=== PATIENT | female | born 2000 | race Asian ===

== ENCOUNTER 2023-07-10 10:02 | Outpatient (AMB) | payer OTHER, SELFPAY ==
[2023-07-10 09:52] VITALS: BP 127/69; PULSE 135; RESP 14; TEMP 38.5; O2SAT 98; BMI 20.4
--- NOTE | 2023-07-10 09:52 | AM.OFFWIN_ITS ---
Intake Vital Signs 07/10/23 09:52 Height 5 ft 4 in Weight 119 lb BMI 20.4 BP 127/69 Blood Pressure Location Rt brachial Position Sitting Respiration 14 Pulse 135 H Pulse Source Pulse Oximeter Temp 101.3 F H Temp Source Temporal Artery Scan Pulse Oximetry (%) 98 Oxygen Delivery Method Simple Mask Intake Visit Reasons: Sore throat Intake Note: Patient has sore throat x2 days accompanied by headache, bodyaches and chills. Patient tested negative at home for covid. 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[employer]) HPI HPI Comments History of Present Illness Details Flu like sx started 2 nights ago, worse since onset fever, chills, headache, sore throat, bodyaches, cough No vomiting Nyquil without relief PFSH Social History Patient Tobacco Use Status: Never used Tobacco Review of Systems Const All systems reviewed & are unremarkable except as noted in HPI and below Physical Exam Vital Signs: Last Vital Signs Temp 101.3 F H 07/10/23 09:52 Pulse 135 H 07/10/23 09:52 Resp 14 07/10/23 09:52 BP 127/69 07/10/23 09:52 Pulse Ox 98 07/10/23 09:52 Oxygen Delivery Method Simple Mask 07/10/23 09:52 BMI result Body Mass Index 20.4 Const Other: Awake alert NAD Sclera and conjunctiva clear bilat EAC w/ cerumen bilat unable to see TM MMM, pharynx mildly erythematous no exudate RRR LS CTAB Assessment & Plan Assessment & Plan (1) Flu-like symptoms: Code(s): R68.89 - Other general symptoms and signs Plan: 1520 viral swab results positive for flu type a. Patient called with these results. Tamiflu sent to the pharmacy take as directed and follow current CDC guidelines (2) Impacted cerumen, bilateral: Code(s): H61.23 - Impacted cerumen, bilateral Plan: Earwax (Cerumen Impaction) Created in Ears Earwax, called cerumen, is produced by special wax-forming glands located in the skin of the outer one-third of the ear canal. It is normal to have cerumen in ear canal as this waxy substance serves as a self-cleaning agent with protective, lubricating, and antibacterial properties. The absence of earwax may result in dry, itchy ears. Self-cleaning means there is a slow and record keeper movement of earwax and skin cells from the eardrum to the ear opening. Old earwax is constantly being transported, assisted by chewing and jaw motion, from the ear canal to the ear opening where, most of the time, it dries, flakes, and falls out. What Are the Symptoms of an Earwax Blockage? Symptoms of an earwax problem may include: Earache Feeling of plugged hearing or fullness in the ear Partial hearing loss that gets worse Tinnitus, ringing, or noises in the ear Itching, odor, or discharge Coughing Pain Infection What Causes Earwax Blockage? When a patient has wax blockage against the eardrum, it is often because they have been probing the ear with such things as cotton-tipped swabs, brian pins, or twisted napkin corners. These objects only push the wax in deeper in the ear canal. Why Is It Dangerous to Use Swabs to Remove Earwax? Wax blockage is one of the most common causes of hearing loss. This is often caused by attempts to clean the ear with cotton swabs. Most cleaning attempts merely push the wax deeper into the ear canal which is shaped like an hourglass, causing a blockage at the narrowing part of the ear canal. In addition, accidental trauma to the ear drum or ear bones can occur if the swab is pushed too deep. Good intentions to keep ears clean may lessen the ability to hear. The ear is a delicate and complicated body part, including the skin of the ear canal and the eardrum. Therefore, special care should be given to this part of the body. Discontinue the habit of inserting cotton-tipped swabs or other objects into the ear canals. What Are the Treatment Options? Cleaning a working ear can be done by washing it with a soft cloth, but do not insert anything into the ear. Ideally, the ear canals should never have to be cleaned. However, that isn?t always the case. The ears should be cleaned when enough earwax gathers to cause symptoms or to prevent a needed assessment of the ear by your doctor. This condition is call cerumen impaction. Most cases of ear wax blockage respond to home treatments used to soften wax. Patients can try placing a few drops of mineral oil, baby oil, glycerin, or commercial drops in the ear. Detergent drops such as hydrogen peroxide or carbamide peroxide (available in most pharmacies) may also aid in the removal of wax. Irrigation or ear syringing is commonly used for cleaning and can be performed by a physician or at home using a commercially available irrigation kit. Common solutions used for syringing include water and saline, which should be warmed to body temperature to prevent dizziness. Ear syringing is most effective when water, saline, or wax dissolving drops are put in the ear canal 15 to 30 minutes before treatment. Caution is advised to avoid having your ears irrigated if you have diabetes, a hole in the eardrum (perforation), tube in the eardrum, skin problems such as eczema in the ear canal or a weakened immune system. >> If you have been prescribed Debrox, use as directed for 5 nights and return to the office on Day 6 for an ear lavage to remove the wax<< Manual removal of earwax is also effective. This is most often performed by an ENT (ear, nose, and throat) specialist, or curator herbarium, using suction or special miniature instruments, and a microscope to magnify the ear canal. Manual removal is preferred if your ear canal is narrow, the eardrum has a perforation or tube, other methods have failed, or if you have skin problems affecting the ear canal, diabetes or a weakened immune system. When Should I Talk to a Doctor? If home treatments do not help, or if wax has accumulated so much that it blocks your ear canal and your ability to hear, an ENT specialist may prescribe eardrops designed to soften wax, or they may wash or vacuum it out. Your ENT specialist may also need to remove the wax under microscopic visualization. If there is a possibility of a perforation in the eardrum, consult a physician prior to trying any ldbr-rpz-xhfzfax remedies. Putting eardrops or other products in the ear with the presence of an eardrum perforation may cause pain or an infection. Washing water through such a hole could start an infection. If you are prone to repeated wax impaction or use hearing aids, consider seeing your doctor every six to 12 months for a checkup and routine preventive cleaning. What Questions Should I Ask My Doctor? What are the benefits and risks/side effects of different cerumen removal management options: earwax softening products, water irrigation vs. physical removal? Does cerumen accumulation vary with age, gender, familial or dietary intake? How do I manage swimming underwater with cerumen impaction? Should anything be done to the ears to prevent a buildup of earwax? How often should cerumen be removed from the ears? Are ear candles a safe option for removing earwax? (3) Influenza: Code(s): J11.1 - Influenza due to unidentified influenza virus with other respiratory manifestations Plan: Influenza (flu) is an infection in the lungs and breathing passages. It is caused by the influenza virus. There are different strains, or types, of the flu virus from year to year. Unlike the common cold, the flu comes on suddenly and the symptoms can be more severe. These symptoms include a cough, congestion, fever, chills, fatigue, aches, and pains. These symptoms may last for a few weeks. Although the flu can make you feel very sick, it usually doesn't cause serious health problems. Home treatment is usually all you need for flu symptoms. But your doctor may prescribe antiviral medicine to prevent other health problems, such as pneumonia, from developing. The risk of other health problems from the flu is highest for young children (under 5), older adults (over 65), women, people with long-term health conditions, people who live in nursing homes or long-term care centres, and indigenous peoples. How can you care for yourself at home? Get plenty of rest. Drink plenty of fluids. If you have to limit fluids because of a health problem, talk with your doctor before you increase the amount of fluids you drink. Take an fjuw-koc-glnwesj pain medicine if needed, such as acetaminophen (Tylen ol), ibuprofen (Advil, Motrin), or naproxen (Aleve), to relieve fever, headache, and muscle aches. Read and follow all instructions on the label. No one younger than 18 should take aspirin. It has been linked to Will syndrome, a serious illness. Take any prescribed medicine exactly as directed. Do not smoke. Smoking can make the flu worse. If you need help quitting, talk to your doctor about stop-smoking programs and medicines. These can increase your chances of quitting for good. If the skin around your nose and lips becomes sore, put some petroleum jelly (such as Vaseline) on the area. To ease coughing: Suck on cough drops or plain, hard candy. Try an elfj-sib-eddwrsy cough or cold medicine. Read and follow all instructions on the label. Raise your head at night with an extra pillow. This may help you rest if coughing keeps you awake. To avoid spreading the flu Wash your hands regularly, and keep your hands away from your face. Stay home from school, work, and other public places until you are feeling better and your fever has been gone for at least 24 hours. The fever needs to have gone away on its own without the help of medicine. Ask people living with you to talk to their doctors about preventing the flu. They may get antiviral medicine to keep from getting the flu from you. To prevent the flu in the future, get the flu vaccine every fall. Encourage people living with you to get the vaccine. Cover your mouth when you cough or sneeze. If you can, cough or sneeze into the bend of your elbow, not your hands. When should you call for help? Call 911 anytime you think you may need emergency care. For example, call if: You have severe trouble breathing. You have a seizure. Call your doctor or nurse advice line now or seek immediate medical care if: You have trouble breathing. You have a fever with a stiff neck or a severe headache. You have pain or pressure in your chest or belly. You have a fever or cough that returns after getting better. You feel very sleepy, dizzy, or confused. You are not urinating. You have severe muscle pain. You have severe weakness, or you are unsteady. You have medical conditions that are getting worse Watch closely for changes in your health, and be sure to contact your doctor or nurse advice line if: You do not get better as expected. You are having a problem with your medicine. Plan This note is constructed using voice recognition software. While every effort has been made to ensure accuracy in apartment maintenance, still errors may have been included Sometimes, these errors may affect the content or meaning of the given sentence . Total time spent caring for the patient today was 30 minutes. This includes time spent before the visit reviewing the chart, time spent during the visit, and time spent after the visit on documentation Orders: Orders SARS-CoV2/FLU/RSV Today R68.89 - Other general symptoms and signs Medications: New benzonatate 100 mg PO TID PRN 30 caps 1RF cough 10 days carbamide peroxide 6.5% (Debrox) 5 drps otic (ears) DAILY 15 mL 0RF BILAT EARS 5 days Patient Instructions: Visit today for flu like symptoms. A viral swab which looks for FLU, COVID and RSV was obtained and is pending at this time. She should not attend work/school for 5 days if this swab is +. Should not attend until afebrile for 24 hours without medication. Follow current CDC guidelines. >> If you have been prescribed Debrox, use as directed for 5 nights and return to the office on Day 6 for an ear lavage to remove the wax<< Start this AFTER you are feeling better. :) Coding Level of Care Code Est Pt Level 4 (19836) Diagnoses Flu-like symptoms R68.89 Impacted cerumen, bilateral H61.23 Influenza J11.1
== END 2023-07-10 10:24 | disposition home or self-care (01) ==
PROVIDERS: Visit Provider Nurse Practitioner Family
DX: R68.89 Other general symptoms and signs (principal); H61.23 Impacted cerumen, bilateral; J11.1 Influenza due to unidentified influenza virus with other respiratory manifestations
CPT/HCPCS: 99214

== ENCOUNTER 2023-07-10 12:38 | Outpatient (REF) | payer OTHER, SELFPAY ==
[2023-07-10 14:45] LABS: Influenza A PCR POSITIVE (Negative); Influenza B PCR NEGATIVE (Negative); Resp Syncy Virus RNA Qual PCR NEGATIVE (Negative); SARS COV2 PCR INHOUSE NEGATIVE (Negative)
== END 2023-07-10 12:39 | disposition home or self-care (01) ==
LOC: HO.LNP 12:38
PROVIDERS: Visit Provider Nurse Practitioner Family
DX: Z11.52 Encounter for screening for COVID-19 (principal); Z20.822 Contact with and (suspected) exposure to COVID-19; R68.89 Other general symptoms and signs
CPT/HCPCS: 0241U

== ENCOUNTER 2024-01-04 09:04 | Outpatient (AMB) | payer OTHER, SELFPAY ==
--- NOTE | 2024-01-04 09:23 | MHC.PC.OV ---
Vital Signs 01/04/24 09:32 Height 5 ft 4 in Weight 118 lb 2 oz BMI 20.3 BP 110/64 Blood Pressure Location Rt brachial Position Sitting Respiration 16 Pulse 78 Pulse Source Pulse Oximeter Temp 98.8 F Temp Source Oral Pulse Oximetry (%) 100 Oxygen Delivery Method Room Air Intake Visit Reasons: Establish care Intake Note: patient here to establish care Tube Man Required: No Is last menstrual period known: Yes Last menstrual period: 12/12/23 Post menopausal: No Patient : No Allergies No Known Allergies Allergy (Verified 01/04/24 09:39) Medication List - Last Reconciled 01/04/24 by Berhane Juarez CNP norgestimate-ethinyl estradiol 0.25-35 mg-mcg ([place]na) 1 tab PO DAILY Tobacco use date assessed: 01/04/24 Dental Screening Dental Screen Date: 01/04/24 Did you have a dental visit in the last 12 months?: Yes Did you have a dental problem in the last 6 months where you did not have access to dental care?: No Was dental information given to patient?: Patient has dentist HPI HPI Comments History of Present Illness Details [facility] visit: About 4 months years Last CPE/labs: Cannot recall Acute issue(s): None She is on daily OCP She notes that she has been making healthy dietary choices and sleeping well. She has not been exer PMHx: None SurgHx: None FHx: Mom: schizophrenia. Dad: Alcohol abuse. PGF: DM, HTN SocHx: She vapes E cigarettes daily; started 2 months ago. Drinks 5-6 liquor once monthly; has been drinking for a year. 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 1. Little interest or pleasure in doing things: not at all 2. Feeling down, depressed, or hopeless: not at all 3. Trouble falling or staying asleep, or sleeping too much: not at all 4. Feeling tired or having little energy: not at all 5. Poor appetite or overeating: not at all 6. Feeling bad about yourself - or that you are a failure or have let yourself or your family down: not at all 7. Trouble concentrating on things, such as reading the newspaper or watching television: not at all 8. Moving or speaking so slowly that other people could have noticed. Or the opposite - being so fidgety or restless that you have been moving around a lot more than usual: not at all 9. Thoughts that you would be better off or of hurting yourself in some way: not at all Total score: 0 Depression Screening Interpretation: Negative Depression Screening Done: Yes 40189 - PHQ-9 Billing: Yes Source: Developed by Drs. Keo Sanchez, Rena Mcguire, Carlos Nguyen and colleagues, with an educational jesusita from [employer]. Thrive Questionnaire Date Thrive assessed: 01/04/24 I am a: Patient What is your living situation today?: I have a steady place to live Within the past 12 months, did the food you bought not last and you didn't have the money to get more?: Never true Within the past 12 months, did you worry whether your food would run out before you got money to buy more?: Never true Do you have trouble paying for medicines?: No Do you have trouble getting transportation to medical appointments?: No Do you have trouble paying your heating and electricity bill?: No Do you have trouble taking care of your child, family member or friend?: No Do you have trouble with day-to-day activities such as bathing, preparing meals, shopping, managing finances, etc.?: No Are you currently unemployed and looking for a job?: No Are you interested in more education?: No Please select the resources that you would like help with: None Currently or been in a relationship where the following occur: No concerns reported THRIVE Score: 0 AUDIT C Alcohol Use Questionnaire (AUDIT-C) 1. How often do you have a drink containing alcohol?: 2-4 times a month 2. How many drinks containing alcohol do you have on a typical day when you are drinking?: 5 or 6 3. How often do you have six or more drinks on one occasion?: Monthly (once every couple months) Total Score: 6 REYES-7 AMB Questionnaire REYES-7 Date REYES - 7 assessed: 01/04/24 Feeling nervous, anxious, or on edge: 0 = Not at all Not being able to stop or control worryin = Not at all Worrying too much about different things: 0 = Not at all Trouble relaxin = Not at all Being so restless that it is hard to sit still: 0 = Not at all Becoming easily annoyed or irritable: 0 = Not at all Feeling afraid as if something awful might happen: 0 = Not at all Total REYES-7 score (0-4 normal; 5-9 mild; 10-14 moderate; 15-21 severe): 0 Source: Developed by Drs. Keo Sanchez, Rena Mcguire, Carlos Nguyen and colleagues, with an educational jesusita from [employer]. REYES-7 Assessment Billing REYES-7 Assessment Tool: REYES-7 Assessment 15006 Review of Systems Const Details: Denies chills, Denies fatigue, Denies fever(s), Denies headache(s) and Denies weakness HEENT Denies change in vision, Denies dizziness, Denies headache(s), Denies hearing loss, Denies nasal congestion, Denies sinus pain, Denies sinus pressure and Denies sore throat Card Denies chest pain, Denies lightheadedness, Denies dyspnea and Denies other (palpitations) Resp Denies cough, Denies dyspnea and Denies wheezing GI Denies abdominal pain, Denies melena, Denies hematochezia, Denies change in bowel habits, Denies dyspepsia and Denies nausea Denies hematuria and Denies dysuria Musc Denies abnormal gait, Denies myalgias, Denies arthralgias, Denies numbness and Denies tingling Skin/Breast Denies rash, Denies unusual bruising and Denies wounds Neuro Denies abnormal gait, Denies dizziness, Denies headache(s), Denies memory loss, Denies numbness, Denies Sensory deficit (Neuro), Denies tingling and Denies weakness Psych Denies anxiety, Denies depression and Denies memory loss Endo Denies cold intolerance, Denies fatigue, Denies heat intolerance, Denies polydipsia and Denies polyuria Robbin/Lymph Denies easy bleeding and Denies easy bruising Aller/Immun Denies wheezing Physical exam (Primary Care) Vital Signs: Last Vital Signs Temp 98.8 F 01/04/24 09:32 Pulse 78 01/04/24 09:32 Resp 16 01/04/24 09:32 BP 110/64 01/04/24 09:32 Pulse Ox 100 01/04/24 09:32 Oxygen Delivery Method Room Air 01/04/24 09:32 BMI result Body Mass Index 20.3 Tobacco/Smoking Status: Tobacco use Status Tobacco use date assessed 01/04/24 01/04/24 09:30 Patient Tobacco Use Status Never used Tobacco 01/04/24 09:24 e-Cigarette/Vaping Use Currently Using 01/04/24 09:30 PHQ-9: PHQ-9 Score PHQ-9: Total score 0 01/04/24 09:38 Depression Screening Interpretation: Negative Thrive Assessment: Date of Thrive Assessment Date Thrive assessed 01/04/24 01/04/24 09:38 Currently or been in a relationship where the following occur: No concerns reported Const Other: General: no acute distress, well developed, alert and awake Nutritional Appearance: well nourished Orientation/consciousness: patient oriented x3 HENMT Head: Yes normocephalic and Yes atraumatic Ears: hearing grossly normal bilaterally and impacted cerumen bilaterally, occluding the TMs General nose exam: Normal external nose present and Normal nares present Mouth: Normal oral and palatal mucosa present and moist mucous membranes Teeth and gingiva: dentition normal Throat: Yes oropharynx normal Eyes Pupils: Equal, round and reactive pupils present and Pupil accommodation reflex normal EOM: EOMs intact bilaterally Neck Neck: Yes normal visual inspection, Yes no lymphadenopathy and Yes trachea midline Thyroid: Thyroid normal Carotids: no bruits Lymphatic: no lymphadenopathy noted Chest Chest palpation & inspection: normal inspection of the chest Resp Effort & Inspection: normal respiratory effort Auscultation: clear to auscultation bilaterally Cardio Rate: regular rate Rhythm: regular rhythm Heart sounds: S1 normal heart sound present, S2 normal heart sound present, no gallops, no murmurs and no rubs Bruits: no abdominal aortic bruits and no carotid bruits GI Palpation (GI): No Abdominal aortic bruit present, Soft to palpation, nontender, No hepatosplenomegaly present and No Rebound tenderness present Auscultation: normal bowel sounds General: Yes no CVA tenderness Back/Spine/Pelvis Back: no CVA tenderness Cervical Spine: cervical ROM normal and No Cervical spine tenderness Thoracic/Lumbar Spine: thoraco-lumbar ROM normal, No pain with thoraco-lumbar ROM, No thoracic spinal tenderness and No lumbar spinal tenderness Skin General: warm and dry. Normal skin color. Normal skin turgor Lesions: no lesions Rashes: no rashes Trauma: no lacerations or abrasions Wounds: no wounds Nails: normal Neuro General: patient oriented x3, gait normal and CN's II-XI intact bilaterally Cranial nerves: Yes Equal, round and reactive pupils present Cognition (Neuro): normal cognition Gait exam (Neuro): Normal gait present Motor exam (neuro): 5/5 motor strength present throughout Sensory Exam: No Sensory deficit (Neuro) Deep tendon reflexes (DTR's): Right patellar reflex intensity grade: 2+ and Left patellar reflex intensity grade: 2+ Extrem General: Yes normal to inspection, No edema and No calf tenderness Psych Appearance: grossly normal Affect: normal affect Attitude: cooperative Thought process: Normal thought process present Assessment and Plan Assessment & Plan (1) Normal physical examination, routine: Code(s): Z00.00 - Encounter for general adult medical examination without abnormal findings Plan: No significant physical restrictions or limitations noted Continue current treatment regimen Healthy diet and routine exercise encouraged Advised to avoid drinking more than 2 drinks in one sitting Encouraged to get lab work done and follow-up in 2-3 weeks for labs review Return with symptoms or concerns Verbalized understanding and agreed with the treatment plan (2) Engages in vaping: Code(s): Z72.89 - Other problems related to lifestyle Plan: She vapes E cigarettes daily and started a month ago Instructed on the health risks and complications of vaping and nicotine and encouraged to stop vaping She may notify her PCP if she needs medication treatment to help with nicotine use Verbalized understanding and agreed with the plan (3) Impacted cerumen, bilateral: Code(s): H61.23 - Impacted cerumen, bilateral Plan: Impacted cerumen bilaterally occluding the TMs Denies hearing impairment She was seen for that at the walking and was prescribed which she notes she used as prescribed Advised to follow-up in 2-3 weeks for bilateral ear irrigation Verbalized understanding and agreed with the plan (4) Laboratory tests ordered as part of a complete physical exam (CPE): Code(s): Z00.00 - Encounter for general adult medical examination without abnormal findings Plan: Fasting labs ordered as part of a complete physical exam. Advised to fast for at least 10 hours before getting labs drawn. May drink water Verbalized understanding and agreed with treatment plan. Orders: Orders Comprehensive [place]. Panel Fast Today Z00.00 - Encounter for general adult medical examination without abnormal findings Lipid Panel Today Z00.00 - Encounter for general adult medical examination without abnormal findings TSH reflex Free T4 Today Z00.00 - Encounter for general adult medical examination without abnormal findings Complete Blood Count Auto Diff Today Z00.00 - Encounter for general adult medical examination without abnormal findings UA CC w/rflx Micro + Cult Today Z00.00 - Encounter for general adult medical examination without abnormal findings Coding Level of Care Code New Pt Prev Care 18-39yr([id number] Diagnoses Normal physical examination, routine Z00.00 Engages in vaping Z72.89 Impacted cerumen, bilateral H61.23 Laboratory tests ordered as part of a complete physical exam (CPE) Z00.00 Additional Codes REYES-7 Assessment Billing - REYES-7 Assessment Tool: REYES-7 Assessment 25122 ([id number])
[2024-01-04 09:32] VITALS: BP 110/64; PULSE 78; RESP 16; TEMP 37.1; O2SAT 100; BMI 20.3
== END 2024-01-04 10:01 | disposition home or self-care (01) ==
PROVIDERS: Visit Provider Nurse Practitioner Family
DX: Z00.00 Encounter for general adult medical examination without abnormal findings (principal); Z72.89 Other problems related to lifestyle; H61.23 Impacted cerumen, bilateral
CPT/HCPCS: 99395

== ENCOUNTER 2024-01-04 10:26 | Outpatient (REF) | payer OTHER, SELFPAY ==
[2024-01-04 14:44] LABS: Appearance Urine Clear; Color Urine Yellow; Glucose Urine UA Negative (Negative); Leukocyte Esterase Urine Trace (Negative); Nitrite Urine Negative (Negative); PH 6.5 (5.0-9.0); UMIC TRIGGER UACC YES; Urine Blood Negative (Negative); Urine Ketones Negative (Negative); Urine Protein Negative (Neg-Trace)
[2024-01-04 14:50] LABS: Bacteria Urine Trace (None Seen); Hyaline Casts Urine 0-2 /LPF (0-2); RBC Urine 0-2 /HPF (0-2); Squamous Epithelial Cell Urine 0-2 /HPF (0-2); WBC Urine 0-5 /HPF (0-5)
[2024-01-04 14:51] LABS: MANUAL DIFF FLAG NO
[2024-01-04 14:54] LABS: Basophils Percent Auto 0.3 % (0-2); Eosinophils Absolute Auto 0.1 X10*3/uL (0.0-0.4); Eosinophils Percent Auto 0.8 % (0-4); Hematocrit 38.2 % (37.0-47.0); Hemoglobin 12.3 g/dl (12.0-16.0); Imm Gran Abs Auto 0.03 X10*3/uL (0.00-0.03); Imm Gran Pct Auto 0.3 % (0.0-0.4); Lymphocytes Absolute Auto 1.9 X10*3/uL (1.2-4.9); Lymphocytes Percent Auto 19.4 % (20-40); Mean Corpuscular HGB Conc 32.2 g/dl (31.0-35.0); Mean Corpuscular Hemoglobin 28.9 pg (27.0-33.0); Mean Corpuscular Volume 89.9 fL (80.0-98.0); Mean Platelet Volume 10.2 fL (9.4-12.3); Monocytes Absolute Auto 0.3 X10*3/uL (0.1-1.2); Neutrophils Absolute Auto 7.4 x10*3/uL (2.0-8.3); Neutrophils Percent Auto 76.2 % (45-73); Platelet Count 320 X10*3/uL (160-400); Red Blood Count 4.25 X10*6/uL (4.20-5.50); White Blood Count 9.7 X10*3/uL (4.8-10.8)
[2024-01-04 15:13] LABS: Alanine Aminotransferase 8 U/L (0-31); Albumin Level 4.3 g/dL (3.5-5.0); Alkaline Phosphatase 47 U/L (39-117); Anion Gap 13 (12-20); Aspartate Amino Transferase 17 U/L (5-31); Bilirubin Total 0.4 mg/dL (0.0-1.0); Blood Urea Nitrogen 6 mg/dL (9-16); Calcium 9.7 mg/dL (8.4-10.2); Carbon Dioxide 22 mmol/L (22-29); Chloride 108 mmol/L (96-108); Cholesterol 189 mg/dL (<200); Estimated Glomerular Filt Rate > 60; Glucose Fasting 68 mg/dL (60-99); HDL Cholesterol 63 mg/dL (>40); LDL Cholesterol Calculated 109 mg/dL (<100); Potassium 3.9 mmol/L (3.3-5.1); Sodium 139 mmol/L (135-145); Total Protein 7.6 g/dL (6.5-8.0); Triglycerides 88 mg/dL (<150)
[2024-01-04 15:31] LABS: TSH reflex Free T4 0.91 uIU/mL (0.32-4.0)
== END 2024-01-04 10:27 | disposition home or self-care (01) ==
LOC: HO.WFDLDS 10:26
PROVIDERS: Visit Provider Nurse Practitioner Family
DX: Z00.00 Encounter for general adult medical examination without abnormal findings (principal)
CPT/HCPCS: 36415; 80053; 80061; 81001; 84443; 85025

== ENCOUNTER 2024-01-16 11:45 | Outpatient (AMB) | payer OTHER, SELFPAY ==
--- NOTE | 2024-01-16 11:51 | MHC.PC.OV ---
Vital Signs 01/16/24 11:55 Height 5 ft 4 in Weight 116 lb BMI 19.9 BP 100/58 L Blood Pressure Location Lt brachial Position Sitting Respiration 16 Pulse 98 Pulse Source Pulse Oximeter Temp 99.2 F Temp Source Oral Pulse Oximetry (%) 99 Oxygen Delivery Method Room Air Intake Visit Reasons: 2-3 weeks bilat ear irrigation, labs review Intake Note: patient here for 2-3 weeks follow up on bilat ear irrigation and lab review Cream Buyer Required: No Is last menstrual period known: Yes Last menstrual period: 01/12/24 Post menopausal: No Allergies No Known Allergies Allergy (Verified 01/16/24 12:38) Medication List - Last Reconciled 01/16/24 by Berhane Juarez CNP norgestimate-ethinyl estradiol 0.25-35 mg-mcg ([facility]orena) 1 tab PO DAILY Tobacco use date assessed: 01/16/24 Dental Screening Dental Screen Date: 01/16/24 Did you have a dental visit in the last 12 months?: Yes Did you have a dental problem in the last 6 months where you did not have access to dental care?: No Was dental information given to patient?: Patient has dentist HPI HPI Comments History of Present Illness Details 23-year-old female presents for bilateral ear irrigation and review of recent lab results She notes that she recently stopped vaping She offers no complaints and denies acute symptoms at this time [facility] Family History (Updated 01/04/24 @ 09:38 by Crystal Singh) Father Alcohol abuse Mother FH: mental illness Paternal Grandfather High blood pressure Diabetes Social History Housing: Apartment Patient Tobacco Use Status: Never used Tobacco e-Cigarette/Vaping Use: Currently Using service: No Current occupational status: 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 1. Little interest or pleasure in doing things: not at all 2. Feeling down, depressed, or hopeless: not at all 3. Trouble falling or staying asleep, or sleeping too much: not at all 4. Feeling tired or having little energy: not at all 5. Poor appetite or overeating: not at all 6. Feeling bad about yourself - or that you are a failure or have let yourself or your family down: not at all 7. Trouble concentrating on things, such as reading the newspaper or watching television: not at all 8. Moving or speaking so slowly that other people could have noticed. Or the opposite - being so fidgety or restless that you have been moving around a lot more than usual: not at all 9. Thoughts that you would be better off or of hurting yourself in some way: not at all Total score: 0 24622 - PHQ-9 Billing: Yes Source: Developed by Drs. Keo Sanchez, Rena Mcgurie, Carlos Nguyen and colleagues, with an educational jesusita from [employer]. Thrive Questionnaire Date Thrive assessed: 01/04/24 REYES-7 AMB Questionnaire REYES-7 Date REYES - 7 assessed: 01/04/24 Source: Developed by Drs. Keo Sanchez, Rena Mcguire, Carlos Nguyen and colleagues, with an educational jesusita from [employer]. Review of Systems Const Details: Const Denies chills, Denies fatigue, Denies fever(s), Denies headache(s) and Denies weakness ENT Denies dizziness and Denies headache(s) Card Denies chest pain, Denies lightheadedness, Denies dyspnea and Denies other (Palpitations) Resp Denies cough, Denies dyspnea, Denies wheezing and Denies other ( shortness of breath) GI Denies abdominal pain, Denies melena, Denies hematochezia, Denies change in bowel habits, Denies dyspepsia and Denies nausea Denies hematuria and Denies dysuria Musc Denies abnormal gait, Denies myalgias, Denies arthralgias, Denies numbness and Denies tingling Skin/Breast Denies rash, Denies unusual bruising and Denies wounds Neuro Denies abnormal gait, Denies dizziness, Denies headache(s), Denies memory loss, Denies numbness, Denies Sensory deficit (Neuro), Denies tingling and Denies weakness Psych Denies anxiety, Denies depression, Denies memory loss Endo Denies cold intolerance, Denies fatigue, Denies heat intolerance, Denies polydipsia and Denies polyuria Aller/Immun Denies wheezing Physical exam (Primary Care) Vital Signs: Last Vital Signs Temp 99.2 F 01/16/24 11:55 Pulse 98 01/16/24 11:55 Resp 16 01/16/24 11:55 BP 100/58 L 01/16/24 11:55 Pulse Ox 99 01/16/24 11:55 Oxygen Delivery Method Room Air 01/16/24 11:55 BMI result Body Mass Index 19.9 Tobacco/Smoking Status: Tobacco use Status Tobacco use date assessed 01/16/24 01/16/24 11:57 Patient Tobacco Use Status Never used Tobacco 01/16/24 11:57 e-Cigarette/Vaping Use Currently Using 01/16/24 11:57 PHQ-9: PHQ-9 Score PHQ-9: Total score 0 01/16/24 12:40 Thrive Assessment: Date of Thrive Assessment Date Thrive assessed 01/04/24 01/16/24 11:57 Const Other: General: no acute distress and well developed Nutritional Appearance: well nourished Orientation/consciousness: patient oriented x3 HENMT Head is normocephalic Bilateral ear canal with significant cerumen occluding the TMs Nasal turbinates and oropharynx are pink and moist Sinuses are nontender with palpation No auricular or cervical lymphadenopathy Eyes General: appearance normal, both eyes and all related structures Pupils: Equal, round and reactive pupils present EOM: EOMs intact bilaterally Resp Effort & Inspection: normal respiratory effort Auscultation: clear to auscultation bilaterally Cardio Rate: regular rate Rhythm: regular rhythm Heart sounds: S1 normal heart sound present, S2 normal heart sound present, no gallops, no murmurs and no rubs GI Palpation (GI): No Abdominal aortic bruit present, Soft to palpation, nontender, No hepatosplenomegaly present and No Rebound tenderness present Auscultation: normal bowel sounds General: Yes no CVA tenderness Back/Spine/Pelvis Back: no CVA tenderness Cervical Spine: cervical ROM normal and No Cervical spine tenderness Thoracic/Lumbar Spine: thoraco-lumbar ROM normal, No pain with thoraco-lumbar ROM, No thoracic spinal tenderness and No lumbar spinal tenderness Extrem General: Yes normal to inspection, No edema and No calf tenderness Skin General: warm and dry. Normal skin color. Normal skin turgor Neuro General: patient oriented x3, gait normal and no focal neuro deficit Cranial nerves: Yes Equal, round and reactive pupils present Cognition (Neuro): normal cognition Gait exam (Neuro): Normal gait present Sensory Exam: No Sensory deficit (Neuro) Psych Appearance: grossly normal Affect: normal affect Attitude: cooperative Thought process: Normal thought process present Assessment and Plan Assessment & Plan (1) Impacted cerumen, bilateral: Code(s): H61.23 - Impacted cerumen, bilateral Plan: Significant cerumen removed from both ear with ear lavage She reports improve hearing Continue current treatment regimen Follow-up for an extended physical exam on after 01/03/2025 or sooner with symptoms or concerns Verbalized understanding and agreed with the plan Recent lab results revealed unremarkable findings Coding Level of Care Code Tele New Pt Level 4 (05974) Diagnoses Impacted cerumen, bilateral H61.23
[2024-01-16 11:55] VITALS: BP 100/58; PULSE 98; RESP 16; TEMP 37.3; O2SAT 99; BMI 19.9
== END 2024-01-16 12:59 | disposition home or self-care (01) ==
PROVIDERS: PCP Nurse Practitioner Family; Visit Provider Nurse Practitioner Family
DX: H61.23 Impacted cerumen, bilateral (principal)
CPT/HCPCS: 69209; 99213

== ENCOUNTER 2024-11-17 09:29 | Outpatient (AMB) | payer OTHER, SELFPAY ==
--- OUTSIDE RECORDS SUMMARY | 2011-01-05 10:09 | XMS_ITS | Continuity of Care Document ---
Author Organization [facility] Address [address] [place] [address] [place] [address] Phone Care Team Providers Care Repairer Auto Clocks Name Role Phone Mame Tam MD Unavailable Unavailable Procedures Procedure Date FITTING OF SPECTACLES Advance Directives Directive Yes / No Effective Date File Name No Information Encounters Encounter Description Practice Location Reason(s) For Visit Diagnoses Date Provider [facility] , [facility], [facility], tel:[phone] [address] [facility] No Information 2010 Yonatan Vilchis. [address] [place] [address], [address], [facility], . tel:[phone] Family History Family Member Type Diagnosis Age At Onset No Information Payers Payer name Insurance type Covered republican ID Authorkindraa [place](s) [place] Medicaid MC [id number] Social History Type Description Quantity Date Captured Comments Sex Female Smoking Status No Information Chief Complaint And Reason For Visit No Information History Of Present Illness Encounter Date Complaint History Of Prese nt Illness No Information Instructions Date Instruction Additional Infor mation No Information Assessments Type Assessment Date No Information
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
[2024-11-17 09:38] VITALS: BP 116/72; PULSE 75; RESP 16; TEMP 36.9; O2SAT 100; BMI 18.6
== END 2024-11-17 11:55 | disposition home or self-care (01) ==
LOC: HO.HMCFM 09:30
PROVIDERS: PCP Nurse Practitioner Family; Visit Provider Nurse Practitioner Family
DX: F32.9 Major depressive disorder, single episode, unspecified (principal); F41.1 Generalized anxiety disorder

== ENCOUNTER → 2024-11-17 09:29 | Outpatient (BNVA) | payer OTHER, SELFPAY | PROVIDERS: PCP Nurse Practitioner Family; Visit Provider Nurse Practitioner Family | DX: F32.9 Major depressive disorder, single episode, unspecified (principal); F41.1 Generalized anxiety disorder; Z62.810 Personal history of physical and sexual abuse in childhood; Z13.31 Encounter for screening for depression; Z13.39 Encounter for screening examination for other mental health and behavioral disorders | CPT/HCPCS: 96127; 99212 ==

== ENCOUNTER 2025-02-24 08:03 | Outpatient (AMB) | payer BC, SELFPAY ==
--- OUTSIDE RECORDS SUMMARY | 2011-01-05 10:09 | XMS_ITS | Continuity of Care Document ---
Author Organization [facility] Address [address] [place] [address] [place] [address] Phone Care Team Providers Care Medical Billing Coordinator Name Role Phone Mame Tam MD Unavailable Unavailable Procedures Procedure Date FITTING OF SPECTACLES Advance Directives Directive Yes / No Effective Date File Name No Information Encounters Encounter Description Practice Location Reason(s) For Visit Diagnoses Date Provider [facility] , [facility], [facility], tel:[phone] [address] [facility] No Information 2010 Yonatan Vilchis. [address] [place] [address], [address], [facility], . tel:[phone] Family History Family Member Type Diagnosis Age At Onset No Information Payers Payer name Insurance type Covered democrat ID [place]raa [place](s) [place] [id number] Social History Type Description Quantity Date Captured Comments Sex Female Smoking Status No Information Chief Complaint And Reason For Visit No Information History Of Present Illness Encounter Date Complaint History Of Prese nt Illness No Information Instructions Date Instruction Additional Infor mation No Information Assessments Type Assessment Date No Information
--- NOTE | 2025-02-24 08:04 | MHC.PC.OV ---
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 Required: No Is last menstrual period known: Yes Last menstrual period: 01/27/25 Post menopausal: No Patient : No Allergies No Known Allergies Allergy (Verified 02/24/25 08:16) Medication List - Last Reconciled 02/24/25 by Berhane Juarez CNP nitrofurantoin macrocrystal 50 mg PO BEDTIME PRN norgestimate-ethinyl estradiol 0.25-0.035 mg (Lorena) 1 tab PO DAILY sertraline 25 mg PO DAILY 30 days Tobacco use date assessed: 02/24/25 Dental Screening Dental Screen Date: 02/24/25 Did you have a dental visit in the last 12 months?: Yes Did you have a dental problem in the last 6 months where you did not have access to dental care?: No Was dental information given to patient?: Patient has dentist HPI HPI Comments History of Present Illness Details 24-year-old female presents for an extended physical exam. She was prescribed Sertraline 25mg daily but never started the medication due to fear of adverse reaction which could potentially impact her function in the new job she was starting. She experiences anxiety and depression symptoms which are manageable. She does not intend to take Sertraline. She has been seeing a therapist for over a year and does not particularly finds her therapist helpful; she intends to change her therapist. Acute issue(s) - None Past Medical History - REYES, MDD Social History - Nonsmoker. Vapes nicotine occasionally. Drinks 6 shots of liquor once monthly. Denies recreational drug use - She generally makes unhealthy dietary choices. She is active but does not exercise. Generally sleep well Health maintenance - Last eye exam was 2 years ago. Referred to Ophthalmology for routine eye exam - Last dental visit was was 09/2024 - Last Tdap was in 08/27/2023 - Has not been vaccinated for the flu this season; receives the vaccine today - Last pap smear test end of last year or beginning of this year with [facility]: Normal. 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 1. Little interest or pleasure in doing things: several days 2. Feeling down, depressed, or hopeless: not at all 3. Trouble falling or staying asleep, or sleeping too much: not at all 4. Feeling tired or having little energy: not at all 5. Poor appetite or overeating: not at all 6. Feeling bad about yourself - or that you are a failure or have let yourself or your family down: not at all 7. Trouble concentrating on things, such as reading the newspaper or watching television: not at all 8. Moving or speaking so slowly that other people could have noticed. Or the opposite - being so fidgety or restless that you have been moving around a lot more than usual: not at all 9. Thoughts that you would be better off or of hurting yourself in some way: not at all Total score: 1 Depression Screening Interpretation: Negative Depression Screening Done: Yes 69618 - PHQ-9 Billing: Yes Source: Developed by Drs. Keo Sanchez, Rena Mcguire, Carlos Nguyen and colleagues, with an educational jesusita from [employer]. Thrive Questionnaire Date Thrive assessed: 02/24/25 I am a: Patient What is your living situation today?: I have a steady place to live Within the past 12 months, did the food you bought not last and you didn't have the money to get more?: Never true Within the past 12 months, did you worry whether your food would run out before you got money to buy more?: Never true Do you have trouble paying for medicines?: No Do you have trouble getting transportation to medical appointments?: No Do you have trouble paying your heating and electricity bill?: No Do you have trouble taking care of your child, family member or friend?: No Do you have trouble with day-to-day activities such as bathing, preparing meals, shopping, managing finances, etc.?: No Are you currently unemployed and looking for a job?: No Are you interested in more education?: No Please select the resources that you would like help with: None Currently or been in a relationship where the following occur: No concerns reported THRIVE Score: 0 AUDIT C Alcohol Use Questionnaire (AUDIT-C) 1. How often do you have a drink containing alcohol?: Monthly or less 2. How many drinks containing alcohol do you have on a typical day when you are drinking?: 5 or 6 3. How often do you have six or more drinks on one occasion?: Less than monthly Total Score: 4 Score Reviewed/Action Taken: Yes REYES-7 AMB Questionnaire REYES-7 Date REYES - 7 assessed: 02/24/25 Feeling nervous, anxious, or on edge: 1 = Several days Not being able to stop or control worryin = Not at all Worrying too much about different things: 0 = Not at all Trouble relaxin = Not at all Being so restless that it is hard to sit still: 0 = Not at all Becoming easily annoyed or irritable: 0 = Not at all Feeling afraid as if something awful might happen: 0 = Not at all Total REYES-7 score (0-4 normal; 5-9 mild; 10-14 moderate; 15-21 severe): 1 Source: Developed by Drs. Keo Sanchez, Rena Mcguire, Carlos Nguyen and colleagues, with an educational jesusita from [employer]. REYES-7 Assessment Billing REYES-7 Assessment Tool: REYES-7 Assessment 53775 Review of Systems Const Details: Denies chills, Denies fatigue, Denies fever(s), Denies headache(s) and Denies weakness HEENT Denies change in vision, Denies dizziness, Denies headache(s), Denies hearing loss, Denies nasal congestion, Denies sinus pain, Denies sinus pressure and Denies sore throat Card Denies chest pain, Denies lightheadedness, Denies dyspnea and Denies other (palpitations) Resp Denies cough, Denies dyspnea and Denies wheezing GI Denies abdominal pain, Denies melena, Denies hematochezia, Denies change in bowel habits, Denies dyspepsia and Denies nausea Denies hematuria and Denies dysuria Musc Denies abnormal gait, Denies myalgias, Denies arthralgias, Denies numbness and Denies tingling Skin/Breast Denies rash, Denies unusual bruising and Denies wounds Neuro Denies abnormal gait, Denies dizziness, Denies headache(s), Denies memory loss, Denies numbness, Denies Sensory deficit (Neuro), Denies tingling and Denies weakness Psych Denies anxiety, Denies depression and Denies memory loss Endo Denies cold intolerance, Denies fatigue, Denies heat intolerance, Denies polydipsia and Denies polyuria Robbin/Lymph Denies easy bleeding and Denies easy bruising Aller/Immun Denies wheezing Physical exam (Primary Care) Vital Signs: Last Vital Signs Temp 97.8 F 02/24/25 08:09 Pulse 84 02/24/25 08:09 Resp 16 02/24/25 08:09 BP 116/74 02/24/25 08:09 Pulse Ox 98 02/24/25 08:09 Oxygen Delivery Method Room Air 02/24/25 08:09 BMI result Body Mass Index 19.6 Tobacco/Smoking Status: Tobacco use Status Tobacco use date assessed 02/24/25 02/24/25 08:15 Patient Tobacco Use Status Never used Tobacco 02/24/25 08:06 e-Cigarette/Vaping Use Currently Using 02/24/25 08:06 PHQ-9: PHQ-9 Score PHQ-9: Total score 1 02/24/25 08:48 Depression Screening Interpretation: Negative Thrive Assessment: Date of Thrive Assessment Date Thrive assessed 02/24/25 02/24/25 08:15 Currently or been in a relationship where the following occur: No concerns reported Const Other: General: no acute distress, well developed, alert and awake Nutritional Appearance: well nourished Orientation/consciousness: patient oriented x3 HENMT Head: Yes normocephalic and Yes atraumatic Ears: hearing grossly normal bilaterally and TM's normal bilaterally General nose exam: Normal external nose present and Normal nares present Mouth: Normal oral and palatal mucosa present and moist mucous membranes Teeth and gingiva: dentition normal Throat: Yes oropharynx normal Eyes Pupils: Equal, round and reactive pupils present and Pupil accommodation reflex normal EOM: EOMs intact bilaterally Neck Neck: Yes normal visual inspection, Yes no lymphadenopathy and Yes trachea midline Thyroid: Thyroid normal Carotids: no bruits Lymphatic: no lymphadenopathy noted Chest Chest palpation & inspection: normal inspection of the chest Resp Effort & Inspection: normal respiratory effort Auscultation: clear to auscultation bilaterally Cardio Rate: regular rate Rhythm: regular rhythm Heart sounds: S1 normal heart sound present, S2 normal heart sound present, no gallops, no murmurs and no rubs Bruits: no abdominal aortic bruits and no carotid bruits GI Palpation (GI): No Abdominal aortic bruit present, Soft to palpation, nontender, No hepatosplenomegaly present and No Rebound tenderness present Auscultation: normal bowel sounds General: Yes no CVA tenderness Back/Spine/Pelvis Back: no CVA tenderness Cervical Spine: cervical ROM normal and No Cervical spine tenderness Thoracic/Lumbar Spine: thoraco-lumbar ROM normal, No pain with thoraco-lumbar ROM, No thoracic spinal tenderness and No lumbar spinal tenderness Skin General: warm and dry. Normal skin color. Normal skin turgor Lesions: no lesions Rashes: no rashes Trauma: no lacerations or abrasions Wounds: no wounds Nails: normal Neuro General: patient oriented x3, gait normal and CN's II-XI intact bilaterally Cranial nerves: Yes Equal, round and reactive pupils present Cognition (Neuro): normal cognition Gait exam (Neuro): Normal gait present Motor exam (neuro): 5/5 motor strength present throughout Sensory Exam: No Sensory deficit (Neuro) Deep tendon reflexes (DTR's): Right patellar reflex intensity grade: 2+ and Left patellar reflex intensity grade: 2+ Extrem General: Yes normal to inspection, No edema and No calf tenderness Psych Appearance: grossly normal Affect: normal affect Attitude: cooperative Thought process: Normal thought process present Office Procedures Flu Questionnaire Does the patient have a severe egg allergy?: No Does the patient have severe life threatening allergies?: No Does the patient have a fever or illness today?: No Has the patient ever had Guillain-[place] Syndrome?: No Has the patient ever had any past reaction to a flu shot?: No Immunizations Fluarix [id number] (PF) 45 mcg (15 mcg x 3)/0.5 mL IM syringe Performing Provider: Berhane Juarez CNP [place] [facility] Administered by: Cornelius Patel RN on 02/24/25 08:48 Dose Route Admin Location Dispensed Lot Number Expiration Date [facility] 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 Sand 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 0.5 mL IM Left Deltoid 0.5 mL [id number] 11/03/25 [id number] VIS Given Date VIS Provided VIS Publication Date 02/24/25 Single Vaccine 24 Eligibility Eligibility Date Funding Source Not [facility] Eligible 02/24/25 Private Coding Level of Care Code Est Pt Prev Care 18-39y(59802) Diagnoses Normal physical examination, routine Z00.00 REYES (generalized anxiety disorder) F41.1 MDD (major depressive disorder) F32.9 Laboratory tests ordered as part of a complete physical exam (CPE) Z00.00 Additional Codes REYES-7 Assessment Billing - REYES-7 Assessment Tool: REYES-7 Assessment 44587 ([id number]) PHQ-9 - 65841 - PHQ-9 Billing: Yes ([id number]) Assessment & Plan Assessment & Plan (1) Normal physical examination, routine: Code(s): Z00.00 - Encounter for general adult medical examination without abnormal findings Category: Medical Plan: No significant functional limitations noted. Healthy diet and routine exercise encouraged. Instructed on the health risks and complications of vaping and excessive alcohol intake. Encouraged to stop vaping and cut down or avoid drinking. No more than 1 drink daily or 5 weekly. For lab work and follow-up for telehealth visit for labs review in 2-4 weeks. Return sooner with symptoms or concerns. Verbalized understanding and agreed with the plan. (2) REYES (generalized anxiety disorder): Code(s): F41.1 - Generalized anxiety disorder Category: Medical Plan: She was prescribed Sertraline 25mg daily but never started the medication due to fear of adverse reaction which could potentially impact her function in the new job she was starting. She experiences anxiety and depression symptoms which are manageable. She does not intend to take Sertraline. She has been seeing a therapist for over a year and does not particularly finds her therapist helpful; she intends to change her therapist. PHQ-9 and REYES-7 scores are normal. Routine exercise encouraged. Follow-up with therapist as planned. Return with symptoms or concerns. Verbalized understanding and agreed with the plan. (3) MDD (major depressive disorder): Code(s): F32.9 - Major depressive disorder, single episode, unspecified Category: Medical Plan: Plan as above. (4) Laboratory tests ordered as part of a complete physical exam (CPE): Code(s): Z00.00 - Encounter for general adult medical examination without abnormal findings Category: Medical Plan: Fasting labs ordered as part of a complete physical exam. Advised to fast for at least 10 hours before getting labs drawn. May drink water Verbalized understanding and agreed with treatment plan. Orders: Orders Comprehensive [place]. Panel Fast Today Z00.00 - Encounter for general adult medical examination without abnormal findings Lipid Panel Today Z00.00 - Encounter for general adult medical examination without abnormal findings Microalbumin, Random (w Creat) Today Z00.00 - Encounter for general adult medical examination without abnormal findings Influenza [id number] Immunization Today Z23 - Encounter for immunization Complete Blood Count Auto Diff Today Z00.00 - Encounter for general adult medical examination without abnormal findings TSH reflex Free T4 Today Z00.00 - Encounter for general adult medical examination without abnormal findings UA CC w/rflx Micro + Cult Today Z00.00 - Encounter for general adult medical examination without abnormal findings Vitamin D 25-OH Total Today Z00.00 - Encounter for general adult medical examination without abnormal findings
[2025-02-24 08:09] VITALS: BP 116/74; PULSE 84; RESP 16; TEMP 36.6; O2SAT 98; BMI 19.6
--- OUTSIDE RECORDS SUMMARY | 2025-02-24 08:09 | XMS_ITS | Clinical Summary ---
Author Organization [facility] Address [address] [place], [place] [id number] Phone Care Team Providers Care Sport Internship Name Role Phone Pcp, Unknown Primary Care Provider Unavailabl e Allergies Active Allergy Reactions Criticality Noted Date Comments Sulfamethoxazole-Trimethoprim 2022 Medications norgestimate-ethin yl estradioL (ORTHO-CYCLEN) 0.25-0.035 mg per tablet Lorena Active Active Problems No known active problems Social History Tobacco Use Types Packs/Day Years Used Date Smoking Tobacco: Never Smokeless Tobacco: Never Tobacco Cessation:Counseling Given: Not Answered Alcohol Use Standard Drinks/Week Comments Yes 0 (1 standard drink = 0.6 oz pur e alcohol) Occassioanlly Education Answer Date Recorded Are you interested in more education? Not on ibeth e 09/02/2022 Are you concerned about learning? Not on file 09/02/2022 No 09/02/2022 No 09/02/2022 Digital Access Answer Date Recorded No 10/01/2022 No 10/01/2022 No 10/01/2022 Reliable internet access at home? Not on file 10/01/2022 Device with a working camera? Not on file Comments Unknown Sex and Gender Information Value Date Recorded Sex Assigned at Not on file Legal Sex Female 3:28 PM EDT Gender Identity Not on file Sexual Orientation Not on file Last Filed Vital Signs Vital Sign Reading Time Taken Comments Blood Pressure 118/72 09/12/2022 9:24 AM EDT Pulse 70 09/12/2022 9:24 AM EDT Temperature 36.5 C (97.7 F) 09/12/2022 9:24 AM EDT Respiratory Rate 16 09/12/2022 9:24 AM EDT Oxygen Saturation 98% 09/12/2022 9:24 AM EDT Inhaled Oxygen Concentration - - Weight 54.4 kg (120 lb) 09/12/2022 9:24 AM EDT Height 162.6 cm (5' 4 ) 09/12/2022 9:24 AM EDT Body Mass Index 20.6 09/12/2022 9:24 AM EDT Plan of Treatment Health Maintenance Due Date Last Done Comments DEPRESSION SCREENING 2012 SMOKING Hx and SMOKELESS TOBACCO SCREENING 2013 HEPATITIS A VACCINES (2 of 2 - 2-dose series) 11/23/2013 05/26/2013 HPV VACCINES (1 - 3-dose series) 2015 HEPATITIS C SCREENING 2018 HIV ONE-TIME SCREENING (18-65 YEARS) 2018 PAP SMEAR 2021 Adult Td,Tdap Booster 12/21/2021 12/22/2011 CHLAMYDIA SCREENING 09/13/2023 09/12/2022 INFLUENZA VACCINE (#1) 2024 03/30/2020 COVID-19 VACCINE ( season) 2025 04/21/2021, 09/26/2020, 08/30/2020 PNEUMOCOCCAL VACCINES (0-49 years) Aged Out 05/24/2007, 07/18/2006, 01/28/2001, Additional history exists No longer eligible based on patient's age to complete this topic MENINGOCOCCAL VACCINES (ACWY) Aged Out 01/04/2011 No longer eligible based on patient's age to complete this topic HIB VACCINES Aged Out No longer eligi ble based on patient's age to complete this topic MENINGOCOCCAL VACCINES (B) Aged Out N o longer eligible based on patient's age to complete this topic Medical Devices Not on file Procedures Procedure Name Priority Date/Time Associated Diagnosis Comments CHLAMYDIA TRACHOMATIS AND NEISSERIA GONORRHOEAE NUCLEIC ACID DETECTION Routine 09/12/2022 9:48 AM EDT Acute cystitis with hematuria from Last 3 Months or Most Recently Relevant to Health Maintenance Results * Chlamydia Trachomatis and Neisseria Gonorrhoeae Nucleic Acid Detection (09/12/2022 9:48 AM EDT) CHLAMYDIA TRACHOMATIS Not Detected Not Detected [facility] NEISERIA GONORRHOEAE Not Detected Not Detected [facility] SPECIMEN TYPE URINE [facility] Urine (Urine) 09/12/2022 9:4 8 AM EDT 09/12/2022 3:18 PM EDT us Dania Dubon NEIGHBORHOOD COORDINATOR NON CULTURE MICROBIOLO GY Final Result [facility] [address] [place] [address] from Last 3 Months or Most Recently Relevant to Health Maintenance Insurance [facility] [facility] [employer] Member Subscriber Plan / Payer (Ef fective 2020-Present) Name:Michelle Geronimo Sheela Relation to Subscriber:Self Name:Michelle Geronimo Payer ID:[id number] (NAIC) Type:Medicaid Address: [address] [id number] A[employer] [facility] [employer] [facility] [employer] [facility] [place] [address] [address] [address] [employer] [facility] [place] [address] [employer] [facility] [place] [employer] [facility] Care Teams Sport Internship Relationship Specialty Start Date End Date Pcp, Unknown PCP - General 07/24/22 Additional Source Comments The information contained in this document represents components of the legal health record. It is not the complete legal health record.[facility]
== END 2025-02-24 08:47 | disposition home or self-care (01) ==
LOC: HO.HMCFM 08:03
PROVIDERS: PCP Nurse Practitioner Family; Visit Provider Nurse Practitioner Family
DX: Z00.00 Encounter for general adult medical examination without abnormal findings (principal); F41.1 Generalized anxiety disorder; F32.9 Major depressive disorder, single episode, unspecified; Z23 Encounter for immunization

== ENCOUNTER → 2025-02-24 08:03 | Outpatient (BNVA) | payer SELFPAY | PROVIDERS: PCP Nurse Practitioner Family; Visit Provider Nurse Practitioner Family | DX: Z00.00 Encounter for general adult medical examination without abnormal findings (principal); F41.0 Panic disorder [episodic paroxysmal anxiety]; F32.9 Major depressive disorder, single episode, unspecified; F41.9 Anxiety disorder, unspecified; Z23 Encounter for immunization | CPT/HCPCS: 90471; 90656; 96127 ==

== ENCOUNTER 2025-03-03 11:50 | Outpatient (REF) | payer BC, SELFPAY ==
--- OUTSIDE RECORDS SUMMARY | 2011-01-05 10:09 | XMS_ITS | Continuity of Care Document ---
Author Organization [facility] Address [address] [place] [address] [place] [address] Phone Care Team Providers Care Dot Compliance Manager Name Role Phone Mame Tam MD Unavailable Unavailable Procedures Procedure Date FITTING OF SPECTACLES Advance Directives Directive Yes / No Effective Date File Name No Information Encounters Encounter Description Practice Location Reason(s) For Visit Diagnoses Date Provider [facility] , [facility], [facility], tel:[phone] [address] [facility] No Information 2010 Yonatan Vilchis. [address] [place] [address], [address], [facility], . tel:[phone] Family History Family Member Type Diagnosis Age At Onset No Information Payers Payer name Insurance type Covered alliance party ID Authorkindraa [place](s) [place] Medicaid MC [id number] Social History Type Description Quantity Date Captured Comments Sex Female Smoking Status No Information Chief Complaint And Reason For Visit No Information History Of Present Illness Encounter Date Complaint History Of Prese nt Illness No Information Instructions Date Instruction Additional Infor mation No Information Assessments Type Assessment Date No Information
[2025-03-03 14:16] LABS: Appearance Urine Clear; Glucose Urine UA Negative (Negative); PH 6.5 (5.0-9.0); Specific Gravity - Urine 1.025 (1.005-1.025); UMIC TRIGGER UACC YES
[2025-03-03 14:22] LABS: UACC Culture Trigger YES
[2025-03-03 14:40] LABS: MANUAL DIFF FLAG NO
[2025-03-03 14:45] LABS: Hematocrit 44.4 % (37.0-47.0); Hemoglobin 14.4 g/dl (12.0-16.0); Imm Gran Abs Auto 0.03 X10*3/uL (0.00-0.03); Imm Gran Pct Auto 0.3 % (0.0-0.4); Lymphocytes Absolute Auto 2.7 X10*3/uL (1.2-4.9); Mean Corpuscular HGB Conc 32.4 g/dl (31.0-35.0); Mean Corpuscular Hemoglobin 29.4 pg (27.0-33.0); Mean Corpuscular Volume 90.6 fL (80.0-98.0); NRBC Abs Auto 0.000 X10*3/uL (0.0-0.012); NRBC Pct Auto 0.0 /100WBC (0.0-0.2); Platelet Count 326 X10*3/uL (160-400); Red Blood Count 4.90 X10*6/uL (4.20-5.50); White Blood Count 9.7 X10*3/uL (4.8-10.8)
--- OUTSIDE RECORDS SUMMARY | 2025-03-03 15:14 | XMS_ITS | Clinical Summary ---
Author Organization [facility] Address [address] [place], [place] [id number] Phone Care Team Providers Care Freelance Displayer Name Role Phone Pcp, Unknown Primary Care [...] EDT) CHLAMYDIA TRACHOMATIS Not Detected Not Detected [facility] NEISERIA GONORRHOEAE Not Detected Not Detected [facility] SPECIMEN TYPE URINE [facility] Urine (Urine) 09/12/2022 9:4 8 AM EDT 09/12/2022 3:18 PM EDT us Dania Dubon EDGE BEADER NON CULTURE MICROBIOLO GY Final Result [facility] [address] [place] [address] from Last 3 Months or Most Recently Relevant to Health Maintenance Insurance [employer] [facility] Member Subscriber Plan / Payer (Ef fective 2020-Present) Name:Michelle Geronimo Sheela Relation to Subscriber:Self Name:Michelle Geronimo Payer ID:[id number] (NAIC) Type:Medicaid Address: [id number] [employer] [facility] [employer] [facility] [place] [address] [place] [address] [facility] [place] [address] [place] [address] [facility] [place] [employer] [facility] [employer] Care Teams Freelance Displayer Relationship Specialty Start Date End Date Pcp, Unknown PCP - General 07/24/22 Additional Source Comments The information contained in this document represents components of the legal health record. It is not the complete legal health record.[facility]
[2025-03-03 15:30] LABS: Alanine Aminotransferase 13 U/L (0-31); Albumin Level 5.1 g/dL (3.5-5.0); Alkaline Phosphatase 58 U/L (39-117); Anion Gap 14 (12-20); Aspartate Amino Transferase 25 U/L (5-31); Blood Urea Nitrogen 9 mg/dL (9-16); Calcium 9.9 mg/dL (8.4-10.2); Carbon Dioxide 25 mmol/L (22-29); Chloride 107 mmol/L (96-108); Cholesterol 212 mg/dL (<200); Estimated Glomerular Filt Rate > 60; HDL Cholesterol 69 mg/dL (>40); Potassium 3.8 mmol/L (3.3-5.1); Sodium 142 mmol/L (135-145); Total Protein 8.5 g/dL (6.5-8.0); Triglycerides 100 mg/dL (<150)
[2025-03-03 22:13] LABS: Microalbum/Creatinine Ratio Ur 5.5 ug/mg cr (<30)
== END 2025-03-03 11:51 | disposition home or self-care (01) ==
LOC: HO.WFDLDS 11:50
PROVIDERS: Visit Provider Nurse Practitioner Family
DX: Z00.00 Encounter for general adult medical examination without abnormal findings (principal); Z13.6 Encounter for screening for cardiovascular disorders
CPT/HCPCS: 36415; 80053; 80061; 81001; 81003; 82043; 82306; 82570; 84443; 85025; 87086; 87088; 87147; 87186

== ENCOUNTER 2025-03-16 12:50 | Outpatient (AMB) | payer BC, SELFPAY ==
--- NOTE | 2025-03-16 12:45 | MHC.PC.OV ---
Intake Visit Reasons: labs Intake Note: patient here for Telehealth follow up on labs review Hospital Administrative Assistant Required: No Is last menstrual period known: Yes Last menstrual period: 02/18/25 Post menopausal: No Patient : No Allergies No Known Allergies Allergy (Verified 03/16/25 12:46) Tobacco use date assessed: 03/16/25 Dental Screening Dental Screen Date: 03/16/25 Did you have a dental visit in the last 12 months?: Yes Did you have a dental problem in the last 6 months where you did not have access to dental care?: No Was dental information given to patient?: Patient has dentist HPI HPI Comments History of Present Illness Details 24-year-old female presents for a telehealth visit for review of recent lab results. She offers no complaints and denies acute symptoms at this time. 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 Current occupational exposures/hazards: No Cognitive needs: No Hearing needs: No Vision needs: Yes Female Reproductive History Menstrual Date of last menstrual period: 02/18/25 Questionnaire Thrive Questionnaire Date Thrive assessed: 10/01/24 I am a: Patient What is your living situation today?: I have a steady place to live Within the past 12 months, did the food you bought not last and you didn't have the money to get more?: Never true Within the past 12 months, did you worry whether your food would run out before you got money to buy more?: Never true Do you have trouble paying for medicines?: No Do you have trouble getting transportation to medical appointments?: No Do you have trouble paying your heating and electricity bill?: No Do you have trouble taking care of your child, family member or friend?: No Do you have trouble with day-to-day activities such as bathing, preparing meals, shopping, managing finances, etc.?: No Are you currently unemployed and looking for a job?: Yes Are you interested in more education?: Yes Please select the resources that you would like help with: None Currently or been in a relationship where the following occur: No concerns reported THRIVE Score: 0 REYES-7 AMB Questionnaire REYES-7 Date REYES - 7 assessed: 02/24/25 Source: Developed by Drs. Keo Sanchez, Rena Mcguire, Carlos Nguyen and colleagues, with an educational jesusita from [email or web address] Review of Systems Const Details: Denies chills, Denies fatigue, Denies fever(s), Denies headache(s) and Denies weakness Cardiac Denies chest pain, Denies claudication, Denies leg edema, Denies lightheadedness, Denies palpitations, Denies dyspnea, Denies dyspnea on exertion, Denies orthopnea and Denies other (Loss of consciousness) Resp Denies cough, Denies excessive phlegm production, Denies dyspnea, Denies dyspnea on exertion, Denies snoring and Denies wheezing Physical exam (Primary Care) Tobacco/Smoking Status: Tobacco use Status Tobacco use date assessed 03/16/25 03/16/25 12:48 Patient Tobacco Use Status Never used Tobacco 03/16/25 12:48 e-Cigarette/Vaping Use Currently Using 03/16/25 12:48 Thrive Assessment: Date of Thrive Assessment Date Thrive assessed 10/01/24 03/16/25 12:48 Currently or been in a relationship where the following occur: No concerns reported Const Other: Patient is a+ox4 Telehealth Telehealth Telehealth Platform: Telephone Location of provider rendering services: practice address Location of patient: address on file Patient Identification confirmed using: Name, : Yes Telehealth method: voice only Patient verbally consented to treatment: Yes Patient verbally consented to billing insurance company: Yes Patient informed of any privacy concerns related to visit: Yes Coding Level of Care Code Tele Est Pt Level 3 (53718) Diagnoses Hypercholesterolemia E78.00 Time Spent (min) 10 Assessment & Plan Assessment & Plan (1) Hypercholesterolemia: Code(s): E78.00 - Pure hypercholesterolemia, unspecified Category: Medical Plan: Recent total cholesterol and LDL levels a slightly elevated, 212 and 123 respectively. Advised to limit foods high in saturated fat and avoid foods high in trans fat. Routine exercise encouraged. Fast for 10-12 hours, may drink water, and perform lipid panel blood work a few days before next visit. Follow-up for transfer of care with a new provider and hypercholesterolemia in 2 months. Return sooner with symptoms or concerns. Verbalized understanding and agreed with the plan. Orders: Orders Lipid Panel 2 Months E78.00 - Pure hypercholesterolemia, unspecified
--- OUTSIDE RECORDS SUMMARY | 2025-03-16 14:53 | XMS_ITS | Clinical Summary ---
Author Organization [facility] Address [address] [place], [place] [id number] Phone Care Team Providers Care Disulfurizer Tender Name Role Phone Pcp, Unknown Primary Care [...] VACCINE ( season) 2025 04/21/2021, 09/26/2020, 08/30/2020 IPV VACCINES Completed 05/24/2007, 07/05, 01/28/2001, Additional history exists PNEUMOCOCCAL VACCINES (0-49 years) Aged Out 05/24/2007, [...] EDT) CHLAMYDIA TRACHOMATIS Not Detected Not Detected [facility] NEISERIA GONORRHOEAE Not Detected Not Detected [facility] SPECIMEN TYPE URINE [facility] Urine (Urine) 09/12/2022 9:4 8 AM EDT 09/12/2022 3:18 PM EDT Dania Dubon [facility] GENERAL ORDERABLES Final Result [facility] [address] [place] [address] from Last 3 Months or Most Recently Relevant to Health Maintenance Insurance [facility] ACO [facility] ACO [employer]GETHER [facility] ACO [facility]NOTE [facility] TOGETHER [facility] ACO [facility] M[facility] Care Teams Disulfurizer Tender Relationship Specialty Start Date End Date Pcp, Unknown PCP - General 07/24/22 Additional Source Comments The information contained in this document represents components of the legal health record. It is not the complete legal health record.[facility]
== END 2025-03-16 13:21 | disposition home or self-care (01) ==
LOC: HO.HMCFM 12:50
PROVIDERS: PCP Nurse Practitioner Family; Visit Provider Nurse Practitioner Family
DX: E78.00 Pure hypercholesterolemia, unspecified (principal)